=== PATIENT | female | born 1930 | race Caucasian/White ===

== ENCOUNTER 2017-05-19 13:38 | Emergency (ER) | payer MEDICARE, OTHER ==
[2017-05-19] MEDS ORDERED: BABY ASPIRIN 81 MG CHEW PO ONE (13:51)
[2017-05-19] MEDS ORDERED: Nitrostat 0.4 MG (ED) SL ONE (13:51)
[2017-05-19] MEDS ORDERED: Inapsine 5 MG/2 ML IV ONE (13:51)
[2017-05-19] MEDS ORDERED: NITRO-BID 2% UD PACKETS TOP ONE (13:57)
[2017-05-19] MEDS ORDERED: SUBLIMAZE 100 MCG/2 ML IV ONE (13:57)
[2017-05-19] MEDS ORDERED: NITRO-BID 2% UD PACKETS ONE (14:00)
[2017-05-19] MEDS ORDERED: Sodium Chloride 0.9% 1000 ML 1,000 ML IV SCH (14:00)
[2017-05-19] MEDS ORDERED: BABY ASPIRIN 81 MG CHEW ONE (14:00)
[2017-05-19] MEDS ORDERED: Sodium Chloride 0.9% 1000 ML 1,000 ML ONE (14:00)
[2017-05-19] MEDS ORDERED: SUBLIMAZE 100 MCG/2 ML ONE (14:00)
[2017-05-19 14:25] LABS: BASOPHIL % 0.4 % (0.0-0.4); Eosinophil % 2.9 % (0.00-5.0); Granulocytes % 59.4 % (36.0-66.0); Lymphocytes % 29.2 % (24.0-44.0); Mean Cell Volume 92.8 fl (78-100); Mean Corpuscular Hemoglobin 29.7 pg (26-32); Mean Platelet Volume 9.4 fl (6-9.5); Monocytes % 8.1 % (0.0-12.0); Platelet Count 333 K/mm3 (150-450); Red Blood Count 3.77 M/mm3 (4.1-5.4); Red Cell Distribution Width 13.5 % (11.5-14.0); White Blood Count 5.5 K/mm3 (4.0-10.5)
--- NOTE | 2017-05-19 14:31 | ERPHSYRPT ---
- History of Present Illness Time Seen by Provider: 05/19/17 13:45 Historian: patient Exam Limitations: clinical condition Patient Subjective Stated Complaint: pt c/o burning in the chest, havent felt well all week with dizziness. Triage Nursing Assessment: pt walked into the ER with help of daughter and staff. Pt is pale, warm and dry. respirations even and unlabored. Physician History: PATIENT WITH HISTORY OF CORONARY ARTERY DISEASE, MYOCARDIAL INFARCTION X 3, STENTS X 4 COMPLAINS OF ACUTE ONSET OF BURNING CHEST PAIN DISCOMFORT AT 11 AM TODAY, PAIN SCALE 10/10, HAD RELIEF AFTER NITROGLYCERIN X 3 PAIN SCALE IMPROVED TO 2/10. DENIES ASSOCIATED DYSPNEA, DIAPHORESIS OR PALPITATIONS. Timing/Duration: today Activities at Onset: none Quality: burning Location: substernal Chest Pain Radiation: no radiation Severity of Pain-Max: severe Severity of Pain-Current: mild Modifying Factors: Improves With: nitroglycerin Associated Symptoms: denies symptoms Prior Chest Pain/Cardiac Workup: cardiac cath, heart attack Nitro Today/Relief: 0.4 mg x 4, provided at home Aspirin Treatment Today: 81 mg x 4, provided at home Allergies/Adverse Reactions: iodine [Iodine] Allergy (Severe, Verified 10/30/16 13:46) Shellfish *RETIRED-03/14/13 [Shellfish] Allergy (Verified 10/30/16 13:46) Home Medications: Aspirin EC 81 mg [Ecotrin 81 mg] 81 mg PO DAILY 04/30/13 [History] Carvedilol 3.125 mg [Coreg 3.125 MG] 3.125 mg PO BID 04/30/13 [History] Clonazepam [Klonopin] 1 mg PO BID PRN 04/30/13 [History] Metformin HCl 500 mg [Glucophage 500 MG] 500 mg PO BID 04/30/13 [History] Nitroglycerin 0.4 mg Tablet [Nitrostat 0.4 MG Tablet] 0.4 mg SL Q5MIN PRN MR X 3 PRN 04/30/13 [History] Famotidine 40 mg PO HS 05/19/17 [History] Fexofenadine HCl 60 mg PO DAILY 05/19/17 [History] Mometasone/Formoterol [Dulera 200 Mcg/5 Mcg Inhaler] 8.8 gm IH BID 05/19/17 [ History] Montelukast Sodium 10 mg PO DAILY 05/19/17 [History] PANTOPRAZOLE 40 mg Tablet [Protonix 40MG Tablet] 40 mg PO DAILY 05/19/17 [ History] Ticagrelor [Brilinta] 90 mg PO BID 05/19/17 [History] Valsartan 80 mg PO DAILY 05/19/17 [History] Hx Tetanus, Diphtheria Vaccination/Date Given: No Hx Influenza Vaccination/Date Given: Yes Hx Pneumococcal Vaccination/Date Given: Yes Immunizations Up to Date: Yes - Review of Systems Constitutional: No Fever, No Chills Eyes: No Symptoms Ears, Nose, & Throat: No Symptoms Respiratory: No Cough, No Dyspnea Cardiac: No Chest Pain, No Edema, No Syncope Abdominal/Gastrointestinal: No Symptoms, No Abdominal Pain, No Nausea, No Vomiting, No Diarrhea Genitourinary Symptoms: No Symptoms, No Dysuria Musculoskeletal: No Symptoms, No Back Pain, No Neck Pain Skin: No Symptoms, No Rash Neurological: No Dizziness, No Focal Weakness, No Sensory Changes Psychological: No Symptoms Endocrine: No Symptoms All Other Systems: Reviewed and Negative - Past Medical History Pertinent Past Medical History: Yes Neurological History: TIA ENT History: Cataracts Cardiac History: Angina, Coronary Artery Disease, Myocardial Infarction ([place]), High Cholesterol, Hypertension Respiratory History: Bronchitis Endocrine Medical History: Diabetes Type II Musculoskeletal History: Arthritis GI Medical History: Diverticulitis, Polyps, Irritable Bowel, GERD History: No Pertinent History Psycho-Social History: Anxiety Female Reproductive Disorders: No Pertinent History - Past Surgical History Past Surgical History: Yes Neuro Surgical History: No Pertinent History Cardiac: Angioplasty, Cardiac Stent, Cardiac Catheterization Respiratory: No Pertinent History Gastrointestinal: Hemorrhoidectomy Genitourinary: No Pertinent History Musculoskeletal: No Pertinent History Female Surgical History: No Pertinent History Other Surgical History: OVARIAN CYST REMOVED. - Social History Smoking Status: Never smoker Exposure to second hand smoke: Yes Drug Use: none Patient Lives Alone: Yes - Female History Hx Now: No - Nursing Vital Signs Nursing Vital Signs: Initial Vital Signs Pulse Rate [] 71 Pulse Rate 70 Respiratory Rate 16 Blood Pressure [] 154/74 Pain Intensity 0 - Physical Exam General Appearance: no apparent distress, alert Eye Exam: PERRL/EOMI, eyes nml inspection Ears, Nose, Throat Exam: normal ENT inspection, moist mucous membranes Neck Exam: normal inspection, non-tender, supple, full range of motion Respiratory Exam: normal breath sounds, lungs clear, No respiratory distress Cardiovascular Exam: regular rate/rhythm, normal heart sounds Gastrointestinal/Abdomen Exam: soft, normal bowel sounds (NONTENDER), No tenderness, No mass Back Exam: normal inspection, No CVA tenderness, No vertebral tenderness Extremity Exam: normal inspection, normal range of motion Neurologic Exam: alert, oriented x 3, cooperative, normal mood/affect, sensation nml, No motor deficits Skin Exam: normal color, warm, dry SpO2 Interpretation: normal SpO2: 100 Oxygen Delivery: Nasal Cannula - Course EKG Interpreted by Me: RATE, Sinus Rhythm (SINUS ARRHYTHMIA RATE 66,) - Radiology Exams Chest X-ray Interpretation: Discussed w/ radiologist (ELEVATION LEFT HEMIDIAPHRAM, NO EVIDENCE OF INFILTRATES) Ordered Tests: Active Orders 24 hr Category Date Time Status Director Business Intelligence STAT Care 05/19/17 13:51 Active EKG-ER Only STAT Care 05/19/17 13:51 Active IV Insertion STAT Care 05/19/17 13:51 Active Oxygen-ED Only NASAL CANNULA 2 lpm Care 05/19/17 13:51 Active CHEST 1 VIEW (PORTABLE) Stat Exams 05/19/17 13:52 Completed CBC W DIFF Stat Lab 05/19/17 14:21 Completed CMP Stat Lab 05/19/17 14:21 Completed NT PRO BNP Stat Lab 05/19/17 14:21 Completed PROTIME WITH INR Stat Lab 05/19/17 14:21 Completed TROPONIN Q3H Lab 05/19/17 14:21 Completed Medication Summary Discontinued Medications Generic Name Dose Route Start Last Admin Trade Name Namrata PRN Reason Stop Dose Admin Aspirin 324 mg 05/19/17 13:51 05/19/17 14:13 Baby Aspirin 81 Mg Chew PO 05/19/17 13:52 324 mg STAT ONE Administration Aspirin Confirm 05/19/17 14:00 Baby Aspirin 81 Mg Chew Administered 05/19/17 14:01 Dose 81 mg .ROUTE .STK-MED ONE Droperidol 1.25 mg 05/19/17 13:51 05/19/17 14:24 Inapsine 5 Mg/2 Ml IV 05/19/17 13:52 Not Given STAT ONE Fentanyl Citrate 50 mcg 05/19/17 13:57 05/19/17 14:05 Sublimaze 100 Mcg/2 Ml IV 05/19/17 13:58 50 mcg STAT ONE Administration Fentanyl Citrate Confirm 05/19/17 14:00 Sublimaze 100 Mcg/2 Ml Administered 05/19/17 14:01 Dose 100 mcg .ROUTE .STK-MED ONE Sodium Chloride 1,000 mls @ 50 mls/hr 05/19/17 14:00 05/19/17 14:04 Sodium Chloride 0.9% 1000 Ml IV 06/18/17 13:59 50 mls/hr .Q20H FRIEDA Administration Sodium Chloride Confirm 05/19/17 14:00 Sodium Chloride 0.9% 1000 Ml Administered 05/19/17 14:01 Dose 1,000 mls @ ud .ROUTE .STK-MED ONE Nitroglycerin 0.4 mg 05/19/17 13:51 05/19/17 14:24 Nitrostat 0.4 Mg (Ed) SL 05/19/17 13:52 Not Given STAT ONE Nitroglycerin 1 gm 05/19/17 13:57 05/19/17 14:04 Nitro-Bid 2% Ud Packets TOP 05/19/17 13:58 1 gm STAT ONE Administration Nitroglycerin Confirm 05/19/17 14:00 Nitro-Bid 2% Ud Packets Administered 05/19/17 14:01 Dose 1 gm .ROUTE .STK-MED ONE Lab/Rad Data: Laboratory Result Diagrams 05/19/17 14:21 05/19/17 14:21 Laboratory Results 05/19/17 05/19/17 05/19/17 Range/Units 14:21 14:21 14:21 WBC (4.0-10.5) K/mm3 RBC (4.1-5.4) M/mm3 Hgb (12.0-16.0) gm/dl Hct (35-47) % MCV (78-100) fl MCH (26-32) pg MCHC (32-36) g/dl RDW (11.5-14.0) % Plt Count (150-450) K/mm3 MPV (6-9.5) fl Gran % (36.0-66.0) % Lymphocytes % (24.0-44.0) % Monocytes % (0.0-12.0) % Eosinophils % (0.00-5.0) % Basophils % (0.0-0.4) % Basophils # (0-0.4) INR 1.01 (0.8-3.0) Sodium 143 (136-145) mEq/L Potassium 4.6 (3.5-5.1) mEq/L Chloride 106 (98-107) mEq/L Carbon Dioxide 27.6 (21-32) mEq/L Anion Gap 14.1 (5-15) MEQ/L BUN 19 (9-20) mg/dL Creatinine 1.29 (0.55-1.30) mg/dl Estimated GFR 42 ML/MIN Glucose 93 (70-110) MG/DL Calcium 9.5 (8.5-10.1) mg/dL Total Bilirubin 0.30 (0.2-1.0) mg/dL AST 19 (15-37) U/L ALT 15 (12-78) U/L Alkaline Phosphatase 68 (46-116) U/L Troponin I < 0.017 (0.000-0.056) ng/ml NT-Pro-B Natriuret Pep 416 (0-450) pg/ml Serum Total Protein 6.7 (6.4-8.2) gm/dL Albumin 3.5 (3.4-5.0) g/dL 05/19/17 Range/Units 14:21 WBC 5.5 (4.0-10.5) K/mm3 RBC 3.77 L (4.1-5.4) M/mm3 Hgb 11.2 L (12.0-16.0) gm/dl Hct 35.0 (35-47) % MCV 92.8 (78-100) fl MCH 29.7 (26-32) pg MCHC 32.0 (32-36) g/dl RDW 13.5 (11.5-14.0) % Plt Count 333 (150-450) K/mm3 MPV 9.4 (6-9.5) fl Gran % 59.4 (36.0-66.0) % Lymphocytes % 29.2 (24.0-44.0) % Monocytes % 8.1 (0.0-12.0) % Eosinophils % 2.9 (0.00-5.0) % Basophils % 0.4 (0.0-0.4) % Basophils # 0.02 (0-0.4) INR (0.8-3.0) Sodium (136-145) mEq/L Potassium (3.5-5.1) mEq/L Chloride (98-107) mEq/L Carbon Dioxide (21-32) mEq/L Anion Gap (5-15) MEQ/L BUN (9-20) mg/dL Creatinine (0.55-1.30) mg/dl Estimated GFR ML/MIN Glucose (70-110) MG/DL Calcium (8.5-10.1) mg/dL Total Bilirubin (0.2-1.0) mg/dL AST (15-37) U/L ALT (12-78) U/L Alkaline Phosphatase (46-116) U/L Troponin I (0.000-0.056) ng/ml NT-Pro-B Natriuret Pep (0-450) pg/ml Serum Total Protein (6.4-8.2) gm/dL Albumin (3.4-5.0) g/dL - Progress Progress: improved Progress Note: 05/19/17 14:30 PATIENT GIVEN IV NORMAL SALINE 50ML/HR, ZOFRAN 4MG, FENTANYL 50MCG, AND NITROPASTE 1" ANTERIOR CHEST WALL, CHEST PAIN RESOLVED Discussed with : Other (DISCUSSED WITH DR TORO AT 1550 ACCEPTS TRANSFER TO [facility]IA [facility]) - Departure Time of Disposition: 17:30 Departure Disposition: Transfer Clinical Impression: ACUTE CHEST PAIN Condition: Stable Critical Care Time: No Referrals: MARNIE AN [Primary Care Provider] -
--- NOTE | 2017-05-19 14:36 | XRAY ---
Indication: Chest pain. Comparison: October 30, 2016. Portable chest again demonstrates normal heart and lungs with incidental calcified granulomas. Bony thorax intact.
[2017-05-19 14:44] LABS: INR 1.01 (0.8-3.0); PROTIME 11.4 SECONDS (9.95-12.35)
[2017-05-19 14:51] LABS: ALBUMIN 3.5 g/dL (3.4-5.0); ANION GAP 14.1 MEQ/L (5-15); BILIRUBIN,TOTAL 0.3 mg/dL (0.2-1.0); Carbon Dioxide 27.6 mEq/L (21-32); Potassium 4.6 mEq/L (3.5-5.1); Total Protein 6.7 gm/dL (6.4-8.2)
[2017-05-19 15:59] VITALS: O2SAT 100
[2017-05-19 16:22] VITALS: BP 154/74; PULSE 70
== END 2017-05-19 16:50 | disposition short-term general hospital (02) ==
LOC: ED 13:38
DX: R07.89 Other chest pain (principal); R42 Dizziness and giddiness; I25.2 Old myocardial infarction; I25.10 Atherosclerotic heart disease of native coronary artery without angina pectoris; E78.00 Pure hypercholesterolemia, unspecified; I10 Essential (primary) hypertension; E11.9 Type 2 diabetes mellitus without complications
CPT/HCPCS: 36000; 36415; 71010; 80053; 83880; 84484; 85025; 85610; 93005; 93041; 96360; 96361; 96374; 99285; J3010; A9270-GY

== ENCOUNTER 2018-02-16 14:12 | Emergency (ER) | payer MEDICARE, OTHER ==
--- NOTE | 2018-02-16 14:53 | ERPHSYRPT ---
- History of Present Illness Time Seen by Provider: 02/16/18 14:35 Historian: patient Exam Limitations: no limitations Patient Subjective Stated Complaint: pt has chest pain off and on since this morning, she states nitro helped her pain , describes as aching, had 2 weeks ago had a heart cath, Triage Nursing Assessment: pt alert, resp easy, skin w/d/p, no edema ,chest clear Physician History: The patient is an 87-year-old female with her daughter status post cardiac stent placement 2 weeks ago complains of intermittent chest pain ever since the cardiac stent placement. Today the chest pain lasted longer than usual. The chest pain had been lasting only about 1 minute a few times a day. Today the chest pain began and did not let up. It was a 3 out of 10 achy pain left side. She denies shortness of breath, sweating, or nausea. Her daughter had her take a nitroglycerin tablet which was the first one she has taken since the stent placement. She became lightheaded after taking the nitroglycerin. The chest pain resolved. The chest pain is now slowly coming back. Her migratory game bird biologist was contacted by the daughter and the patient was told to come to the ER for evaluation. The patient has had previous cardiac stents placed prior to this most recent stent placement. Her past medical history is significant for coronary artery disease, cardiac stent placement, hypertension, GERD, and anxiety. Timing/Duration: week(s) (2), intermittent Activities at Onset: none Quality: aching Location: substernal Chest Pain Radiation: no radiation Severity of Pain-Max: mild Severity of Pain-Current: mild Modifying Factors: Improves With: nitroglycerin Associated Symptoms: denies symptoms, No nausea, No vomiting, No palpitations, No heartburn, No hurts to breathe Prior Chest Pain/Cardiac Workup: cardiac cath, recent hospitalization Nitro Today/Relief: 0.4 mg x 1, provided at home, complete relief Aspirin Treatment Today: no aspirin today Allergies/Adverse Reactions: iodine [Iodine] Allergy (Severe, Verified 10/30/16 13:46) Shellfish *RETIRED-03/14/13 [Shellfish] Allergy (Verified 10/30/16 13:46) shrimp Allergy (Verified 02/16/18 14:29) Home Medications: Aspirin EC 81 mg [Ecotrin 81 mg] 81 mg PO DAILY 04/30/13 [History] Clonazepam [Klonopin] 1 mg PO BID PRN 04/30/13 [History] Nitroglycerin 0.4 mg Tablet [Nitrostat 0.4 MG Tablet] 0.4 mg SL Q5MIN PRN MR X 3 PRN 04/30/13 [History] Fexofenadine HCl 60 mg PO DAILY 05/19/17 [History] Mometasone/Formoterol [Dulera 200 Mcg/5 Mcg Inhaler] 8.8 gm IH BID 05/19/17 [ History] Montelukast Sodium 10 mg PO DAILY 05/19/17 [History] PANTOPRAZOLE 40 mg Tablet [Protonix 40MG Tablet] 40 mg PO DAILY 05/19/17 [ History] Valsartan 80 mg PO DAILY 05/19/17 [History] Carvedilol 3.125 mg [Coreg 3.125 MG] 3.125 mg BID 02/16/18 [History] Diphenhydramine HCl [Banophen] 25 mg DAILY 02/16/18 [History] Hx Tetanus, Diphtheria Vaccination/Date Given: No Hx Influenza Vaccination/Date Given: Yes Hx Pneumococcal Vaccination/Date Given: No Immunizations Up to Date: Yes - Review of Systems Constitutional: No Fever, No Chills Eyes: No Symptoms Ears, Nose, & Throat: No Symptoms Respiratory: No Cough, No Dyspnea Cardiac: Chest Pain, No Edema, No Syncope Abdominal/Gastrointestinal: No Abdominal Pain, No Nausea, No Vomiting, No Diarrhea Genitourinary Symptoms: No Dysuria Musculoskeletal: No Back Pain, No Neck Pain Skin: No Rash Neurological: No Dizziness, No Focal Weakness, No Sensory Changes Psychological: No Symptoms Endocrine: No Symptoms Hematologic/Lymphatic: No Symptoms Immunological/Allergic: No Symptoms All Other Systems: Reviewed and Negative - Past Medical History Pertinent Past Medical History: Yes Neurological History: TIA ENT History: Cataracts Cardiac History: Angina, Coronary Artery Disease, Myocardial Infarction ([place]), High Cholesterol, Hypertension Respiratory History: Bronchitis Endocrine Medical History: Diabetes Type II Musculoskeletal History: Arthritis GI Medical History: Diverticulitis, Polyps, Irritable Bowel, GERD History: No Pertinent History Psycho-Social History: Anxiety Female Reproductive Disorders: No Pertinent History - Past Surgical History Past Surgical History: Yes Neuro Surgical History: No Pertinent History Cardiac: Angioplasty, Cardiac Stent, Cardiac Catheterization Respiratory: No Pertinent History Gastrointestinal: Hemorrhoidectomy Genitourinary: No Pertinent History Musculoskeletal: No Pertinent History Female Surgical History: No Pertinent History Other Surgical History: OVARIAN CYST REMOVED. - Social History Smoking Status: Never smoker Exposure to second hand smoke: No Drug Use: none Patient Lives Alone: No - Female History Hx Last Menstrual Period: post Hx Now: No - Nursing Vital Signs Nursing Vital Signs: Initial Vital Signs Temperature 97.0 F 02/16/18 14:23 Pulse Rate 65 02/16/18 14:23 Respiratory Rate 20 02/16/18 14:23 Blood Pressure 171/78 02/16/18 14:23 O2 Sat by Pulse Oximetry 100 02/16/18 14:23 Pain Scale Pain Intensity 1 - Physical Exam General Appearance: no apparent distress, alert Eye Exam: PERRL/EOMI, eyes nml inspection Ears, Nose, Throat Exam: normal ENT inspection, moist mucous membranes Neck Exam: normal inspection, non-tender, supple, full range of motion Respiratory Exam: normal breath sounds, lungs clear, No respiratory distress Cardiovascular Exam: regular rate/rhythm, normal heart sounds Gastrointestinal/Abdomen Exam: soft, No tenderness, No mass Pelvic Exam: not done Rectal Exam: not done Back Exam: normal inspection, No CVA tenderness, No vertebral tenderness Extremity Exam: normal inspection, normal range of motion Neurologic Exam: alert, oriented x 3, cooperative, normal mood/affect, sensation nml, No motor deficits Skin Exam: normal color, warm, dry Lymphatic Exam: adenopathy SpO2 Interpretation: normal SpO2: 100 Oxygen Delivery: Room Air - Course EKG Interpreted by Me: RATE, Sinus Rhythm, NORMAL AXIS, NORMAL INTERVALS, NORMAL QRS, NORMAL ST-T, Other (no change compared to EKG on 05/19/17) - Radiology Exams Chest X-ray Interpretation: Reviewed by me, Teleradiologist Report, Negative (per Dr Gayle.) Ordered Tests: Active Orders 24 hr Category Date Time Status Telecommunications Network Engineer STAT Care 02/16/18 15:06 Active EKG-ER Only STAT Care 02/16/18 15:04 Active IV Insertion STAT Care 02/16/18 15:04 Active Oxygen-ED Only NASAL CANNULA 2 lpm Care 02/16/18 15:04 Active Pulse Oximetry (ED) STAT Care 02/16/18 15:04 Active CHEST 2 VIEWS (PA AND LAT) Stat Exams 02/16/18 15:05 Completed CBC W DIFF Stat Lab 02/16/18 15:00 Completed CMP Stat Lab 02/16/18 15:00 Completed PROTIME WITH INR Stat Lab 02/16/18 15:00 Completed PTT Stat Lab 02/16/18 15:00 Completed TROPONIN Q3H Lab 02/16/18 15:15 Completed TROPONIN Q3H Lab 02/16/18 18:15 Ordered TROPONIN Q3H Lab 02/16/18 21:15 Ordered TROPONIN Q3H Lab 02/17/18 00:15 Ordered TROPONIN Q3H Lab 02/17/18 03:15 Ordered Medication Summary Discontinued Medications Generic Name Dose Route Start Last Admin Trade Name Freq PRN Reason Stop Dose Admin Aspirin 324 mg 02/16/18 15:04 02/16/18 15:23 Baby Aspirin 81 Mg Chew PO 02/16/18 15:05 324 mg STAT ONE Administration Aspirin Confirm 02/16/18 15:26 Baby Aspirin 81 Mg Chew Administered 02/16/18 15:27 Dose 324 mg .ROUTE .STK-MED ONE Lab/Rad Data: Laboratory Result Diagrams 02/16/18 15:00 02/16/18 15:00 Laboratory Results 02/16/18 02/16/18 02/16/18 Range/Units 15:15 15:00 15:00 WBC (4.0-10.5) K/mm3 RBC (4.1-5.4) M/mm3 Hgb (12.0-16.0) gm/dl Hct (35-47) % MCV (78-100) fl MCH (26-32) pg MCHC (32-36) g/dl RDW (11.5-14.0) % Plt Count (150-450) K/mm3 MPV (6-9.5) fl Gran % (36.0-66.0) % Eos # (Auto) (0-0.5) Absolute Lymphs (auto) (1.0-4.6) Absolute Monos (auto) (0.0-1.3) Lymphocytes % (24.0-44.0) % Monocytes % (0.0-12.0) % Eosinophils % (0.00-5.0) % Basophils % (0.0-0.4) % Absolute Granulocytes (1.4-6.9) Basophils # (0-0.4) PT 11.2 (9.95-12.35) SECONDS INR 1.01 (0.8-3.0) APTT 30.3 (25.3-37.0) SECONDS Sodium 143 (137-145) mmol/L Potassium 4.7 (3.5-5.1) mmol/L Chloride 104 (98-107) mmol/L Carbon Dioxide 28 (22-30) mmol/L Anion Gap 15.3 H (5-15) MEQ/L BUN 21 H (7-17) mg/dL Creatinine 1.33 H (0.52-1.04) mg/dL Estimated GFR 40 ML/MIN Glucose 112 H (74-106) mg/dL Calcium 9.6 (8.4-10.2) mg/dL Total Bilirubin 0.40 (0.2-1.3) mg/dL AST 21 (14-36) U/L ALT 9 (0-35) U/L Alkaline Phosphatase 113 (38-126) U/L Troponin I < 0.012 (0.000-0.034) ng/mL Serum Total Protein 6.9 (6.3-8.2) g/dL Albumin 4.0 (3.5-5.0) g/dL 02/16/18 Range/Units 15:00 WBC 7.7 (4.0-10.5) K/mm3 RBC 3.83 L (4.1-5.4) M/mm3 Hgb 11.2 L (12.0-16.0) gm/dl Hct 35.1 (35-47) % MCV 91.6 (78-100) fl MCH 29.2 (26-32) pg MCHC 31.9 L (32-36) g/dl RDW 14.8 H (11.5-14.0) % Plt Count 314 (150-450) K/mm3 MPV 9.6 H (6-9.5) fl Gran % 67.0 H (36.0-66.0) % Eos # (Auto) 0.14 (0-0.5) Absolute Lymphs (auto) 1.80 (1.0-4.6) Absolute Monos (auto) 0.59 (0.0-1.3) Lymphocytes % 23.3 L (24.0-44.0) % Monocytes % 7.6 (0.0-12.0) % Eosinophils % 1.8 (0.00-5.0) % Basophils % 0.3 (0.0-0.4) % Absolute Granulocytes 5.19 (1.4-6.9) Basophils # 0.02 (0-0.4) PT (9.95-12.35) SECONDS INR (0.8-3.0) APTT (25.3-37.0) SECONDS Sodium (137-145) mmol/L Potassium (3.5-5.1) mmol/L Chloride (98-107) mmol/L Carbon Dioxide (22-30) mmol/L Anion Gap (5-15) MEQ/L BUN (7-17) mg/dL Creatinine (0.52-1.04) mg/dL Estimated GFR ML/MIN Glucose (74-106) mg/dL Calcium (8.4-10.2) mg/dL Total Bilirubin (0.2-1.3) mg/dL AST (14-36) U/L ALT (0-35) U/L Alkaline Phosphatase (38-126) U/L Troponin I (0.000-0.034) ng/mL Serum Total Protein (6.3-8.2) g/dL Albumin (3.5-5.0) g/dL - Progress Progress: unchanged Air Movement: good Progress Note: 02/16/18 16:16 I discussed pt with Dr Ramsey who accepts pt to [facility]. Blood Culture(s) Obtained: No Antibiotics given: No Counseled pt/family regarding: lab results, diagnosis, rad results - Departure Time of Disposition: 16:15 Departure Disposition: Transfer (Transfer to [facility] per Dr Ramsey) Clinical Impression: Chest pain Condition: Stable Critical Care Time: No Referrals: CHARLES BERNARD [Primary Care Provider] -
[2018-02-16] MEDS ORDERED: BABY ASPIRIN 81 MG CHEW PO ONE (15:04)
[2018-02-16 15:19] LABS: BASOPHIL % 0.3 % (0.0-0.4); Basophil (Absolute #) 0.02 (0-0.4); Eosinophil % 1.8 % (0.00-5.0); Eosinophil (Absolute #) 0.14 (0-0.5); Granulocyte Absolute (ANC) 5.19 (1.4-6.9); Hematocrit 35.1 % (35-47); Hemoglobin 11.2 gm/dl (12.0-16.0); Lymphocytes % 23.3 % (24.0-44.0); Mean Cell Volume 91.6 fl (78-100); Mean Corpuscular Hemoglobin 29.2 pg (26-32); Mean Corpuscular Hgb Concent. 31.9 g/dl (32-36); Mean Platelet Volume 9.6 fl (6-9.5); Monocyte (Absolute #) 0.59 (0.0-1.3); Monocytes % 7.6 % (0.0-12.0); Platelet Count 314 K/mm3 (150-450); Red Blood Count 3.83 M/mm3 (4.1-5.4); Red Cell Distribution Width 14.8 % (11.5-14.0); White Blood Count 7.7 K/mm3 (4.0-10.5)
[2018-02-16 15:25] LABS: ANION GAP 15.3 MEQ/L (5-15); BILIRUBIN,TOTAL 0.4 mg/dL (0.2-1.3); Calcium 9.6 mg/dL (8.4-10.2); Creatinine 1 1.33 mg/dL (0.52-1.04); Potassium 4.7 mmol/L (3.5-5.1); Total Protein 6.9 g/dL (6.3-8.2)
[2018-02-16 15:26] LABS: INR 1.01 (0.8-3.0)
[2018-02-16] MEDS ORDERED: BABY ASPIRIN 81 MG CHEW ONE (15:26)
--- NOTE | 2018-02-16 15:27 | XRAY ---
Indication: Chest pain and short of breath. Comparison: May 19, 2017. PA/lateral chest again demonstrates normal heart and lungs with a few incidental calcified granulomas. Bony thorax intact. No new/acute findings.
[2018-02-16 15:29] LABS: PTT 30.3 SECONDS (25.3-37.0)
[2018-02-16 17:27] VITALS: BP 137/72; PULSE 76; O2SAT 99
== END 2018-02-16 17:41 | disposition home or self-care (01) ==
LOC: ED 14:12
DX: R07.9 Chest pain, unspecified (principal); Z98.61 Coronary angioplasty status; I25.10 Atherosclerotic heart disease of native coronary artery without angina pectoris; I10 Essential (primary) hypertension; K21.9 Gastro-esophageal reflux disease without esophagitis; F41.9 Anxiety disorder, unspecified; Z79.899 Other long term (current) drug therapy
CPT/HCPCS: 36000; 36415; 71046; 80053; 84484; 85025; 85610; 85730; 93005; 93041; 99284; A9270-GY

== ENCOUNTER 2018-05-10 14:16 | Emergency (ER) | payer MEDICARE, OTHER ==
[2018-05-10 14:23] VITALS: O2SAT 98
--- NOTE | 2018-05-10 14:33 | ERPHSYRPT ---
- History of Present Illness Time Seen by Provider: 05/10/18 14:27 Source: patient Exam Limitations: no limitations Patient Subjective Stated Complaint: Fall, Right Wrist Pain, Chin Laceration Triage Nursing Assessment: Pt presents to the ED with complaints of fall at [facility] [place] a [place]. Pt has laceration to chin, bleeding controlled on arrival. Pt also has mild right wrist swelling and abrasion noted to wrist with no active bleeding. No distress noted, skin PWD. Physician History: patient actually tripped walking up a ramp, resulting in falling face first onto concrete. Incident occurred about an hour prior to arrival to ED. Patient did not have any loss of consciousness. Patient was alert and appropriate throughout. Patient did suffer a 1 cm chin laceration and a small skin tear to her right wrists area. Patient denies any headaches, dizziness, nausea, vomiting, chest/abdominal/pelvis/extremity pain or injuries. Occurred: just prior to arrival Reason for Fall: lost balance Injuries/Pain Location: face (Chin laceration approximately 1 cm), upper extremity (skin tear to right wrist) Loss of Consciousness: no loss of consciousness Quality: burning Severity of Pain-Max: mild Severity of Pain-Current: none Modifying Factors: Improves With: movement (worsens) Associated Symptoms (Fall): extremity injury, No back pain, No chest pain, No dizziness, No headache, No lightheadedness, No trouble walking, No vomiting, No vision changes Allergies/Adverse Reactions: iodine [Iodine] Allergy (Severe, Verified 10/30/16 13:46) Shellfish *RETIRED-03/14/13 [Shellfish] Allergy (Verified 10/30/16 13:46) shrimp Allergy (Verified 02/16/18 14:29) Home Medications: Aspirin EC 81 mg [Ecotrin 81 mg] 81 mg PO DAILY 04/30/13 [History] Clonazepam [Klonopin] 1 mg PO BID PRN 04/30/13 [History] Nitroglycerin 0.4 mg Tablet [Nitrostat 0.4 MG Tablet] 0.4 mg SL Q5MIN PRN MR X 3 PRN 04/30/13 [History] Fexofenadine HCl 60 mg PO DAILY 05/19/17 [History] Mometasone/Formoterol [Dulera 200 Mcg/5 Mcg Inhaler] 8.8 gm IH BID 05/19/17 [ History] Montelukast Sodium 10 mg PO DAILY 05/19/17 [History] PANTOPRAZOLE 40 mg Tablet [Protonix 40MG Tablet] 40 mg PO DAILY 05/19/17 [ History] Valsartan 80 mg PO DAILY 05/19/17 [History] Carvedilol 3.125 mg [Coreg 3.125 MG] 3.125 mg BID 02/16/18 [History] Diphenhydramine HCl [Banophen] 25 mg DAILY 02/16/18 [History] Hx Tetanus, Diphtheria Vaccination/Date Given: No Hx Influenza Vaccination/Date Given: Yes Hx Pneumococcal Vaccination/Date Given: Yes Immunizations Up to Date: No - Review of Systems Constitutional: No Fever, No Chills Eyes: No Symptoms Ears, Nose, & Throat: No Symptoms Respiratory: No Symptoms, No Cough, No Dyspnea Cardiac: No Symptoms, No Chest Pain, No Edema, No Syncope Abdominal/Gastrointestinal: No Symptoms, No Abdominal Pain, No Nausea, No Vomiting, No Diarrhea Genitourinary Symptoms: No Symptoms, No Dysuria Musculoskeletal: No Back Pain, No Neck Pain Skin: Other (R wrist skin tear/chin lac), No Rash Neurological: No Dizziness, No Focal Weakness, No Sensory Changes Psychological: No Symptoms Endocrine: No Symptoms Hematologic/Lymphatic: No Symptoms Immunological/Allergic: No Symptoms All Other Systems: Reviewed and Negative - Past Medical History Pertinent Past Medical History: Yes Neurological History: TIA ENT History: Cataracts Cardiac History: Angina, Coronary Artery Disease, Myocardial Infarction (SD), High Cholesterol, Hypertension Respiratory History: Bronchitis Endocrine Medical History: Diabetes Type II Musculoskeletal History: Arthritis GI Medical History: Diverticulitis, Polyps, Irritable Bowel, GERD History: No Pertinent History Psycho-Social History: Anxiety Female Reproductive Disorders: No Pertinent History - Past Surgical History Past Surgical History: Yes Neuro Surgical History: No Pertinent History Cardiac: Angioplasty, Cardiac Stent, Cardiac Catheterization Respiratory: No Pertinent History Gastrointestinal: Hemorrhoidectomy Genitourinary: No Pertinent History Musculoskeletal: No Pertinent History Female Surgical History: No Pertinent History Other Surgical History: OVARIAN CYST REMOVED. - Social History Smoking Status: Never smoker Exposure to second hand smoke: No Drug Use: none Patient Lives Alone: Yes - Female History Hx Now: No - Nursing Vital Signs Nursing Vital Signs: Initial Vital Signs Temperature 98.8 F 05/10/18 14:20 Pulse Rate 72 05/10/18 14:20 Respiratory Rate 18 05/10/18 14:20 Blood Pressure 156/77 05/10/18 14:20 O2 Sat by Pulse Oximetry 98 05/10/18 14:20 Pain Scale Pain Intensity 2 - Gray Coma Score Best Eye Response (Gray): (4) open spontaneously Best Verbal Response (Mica): (5) oriented Best Motor Response (Gray): (6) obeys commands Mica Total: 15 - Physical Exam General Appearance: no apparent distress, alert Head Injury: no evidence of injury Eye Exam: PERRL/EOMI ENT Exam: airway nml, No dental injury, No hemotympanum Neck Exam: supple, trachea midline, full range of motion, normal inspection, other (there is a 1 cm laceration to the lower chin area. This appears to be superficial), No tenderness Respiratory/Chest Exam: normal breath sounds, No chest tenderness, No respiratory distress Cardiovascular Exam: normal heart sounds, regular rate/rhythm Gastrointestinal Exam: soft, No tenderness, No distention, No guarding, No ecchymosis Back Exam: normal inspection, No vertebral tenderness Extremity Exam: normal inspection, normal range of motion, pelvis stable, contusions (right wrist), other (small skin tear right wrist), No deformities, No joint swelling, No evidence of injury, No hip tenderness, No motor deficit, No pain with movement Peripheral Pulses: dorsalis-pedis (R): 2+, dorsalis-pedis (L): 2+ Neurologic Exam: alert, oriented x 3, cooperative, sensation nml, No motor deficits Skin Exam: normal color, warm, dry SpO2 Interpretation: normal SpO2: 98 Oxygen Delivery: Room Air Procedures - Laceration/Wound Repair Face Wound Location: head (Chin) Wound Length (cm): 1 Wound's Depth, Shape: superficial Wound Explored: clean Irrigated: Yes Hibiclens Prep: Yes Anesthesia: 1% Lidocaine Volume Anesthetic (ccs): 3 Wound Debrided: minimal Wound Repaired With: sutures Suture Size/Type: 5-0 Number of Sutures: 4 Layer Closure?: No Sterile Dressing Applied?: Yes Splint Applied?: No Sling Applied?: No - Course Nursing assessment & vital signs reviewed: Yes - Progress Progress: improved Progress Note: 05/10/18 15:03 dressings were placed on skin tear and chin laceration. Tetanus was updated Counseled pt/family regarding: diagnosis - Departure Time of Disposition: 15:04 Departure Disposition: Home Clinical Impression: Chin laceration, Skin tear Condition: Stable Critical Care Time: No Referrals: CHARLES BERNARD [Primary Care Provider] - Instructions: Contusion (DC), Wound Care (DC) Additional Instructions: Sutures may be remove in 5-7 days. May take Motrin/Tylenol for pain and swelling, along with ice to any sore areas. Return for worse swelling, redness, pus from wound, fever or any problems
[2018-05-10] MEDS ORDERED: Adacel Vial IM ONE ×2 (15:02→15:05)
[2018-05-10] MEDS ORDERED: XYLOCAINE 1% HCL 20 ML MDV IJ ONE (15:10)
[2018-05-10 15:38] VITALS: BP 183/86; PULSE 80
== END 2018-05-10 15:38 | disposition home or self-care (01) ==
LOC: ED 14:16
DX: S01.81XA Laceration without foreign body of other part of head, initial encounter (principal); S61.511A Laceration without foreign body of right wrist, initial encounter; W10.2XXA Fall (on)(from) incline, initial encounter; Z79.82 Long term (current) use of aspirin; Z79.899 Other long term (current) drug therapy
CPT/HCPCS: 12011; 90471; 90715; 96372; 99284

== ENCOUNTER 2018-10-22 18:58 | Emergency (ER) | payer MEDICARE, OTHER ==
[2018-10-22] MEDS ORDERED: BABY ASPIRIN 81 MG CHEW PO ONE (19:19)
--- NOTE | 2018-10-22 19:24 | ERPHSYRPT ---
- History of Present Illness Time Seen by Provider: 10/22/18 19:21 Historian: patient Exam Limitations: no limitations Patient Subjective Stated Complaint: pt reports waking from sleep this morning with chest pain. denies any shortness of breath. pt reports taking 3 nitro without relief. pt has strong cardiac history. pt states "my pain is almost gone " Triage Nursing Assessment: pt is aox3, pupils perrl, afebrile, resps easy and non labored, radial pulses are strong and equal, heart sounds are strong and regular, cap refill < 3 seconds, no edema appreciated. skin is pale warm dry. pain localized to the center of the chest that radiates to the back. pain is intermittent in nature. Physician History: 88 year old white female with history of ASCAD, diabetes II, arrives with complaint of aching pain in anterior chest sometimes sharp since 8:00 tghis am began at rest Timing/Duration: today (8:00) Quality: aching, sharpness Location: substernal Chest Pain Radiation: no radiation Severity of Pain-Max: moderate Severity of Pain-Current: none Modifying Factors: Improves With: nothing Associated Symptoms: No nausea, No vomiting, No palpitations, No heartburn, No abdominal pain, No shortness of breath, No cough, No hurts to breathe, No diaphoresis, No chills, No fever, No weakness, No swelling/lump in chest, No syncope, No rash, No headache, No dizziness, No edema, No back pain Prior Chest Pain/Cardiac Workup: heart attack Nitro Today/Relief: no nitro taken today Aspirin Treatment Today: 81 mg x 4, provided by ED Allergies/Adverse Reactions: iodine [Iodine] Allergy (Severe, Verified 10/22/18 19:20) Shellfish *RETIRED-03/14/13 [Shellfish] Allergy (Verified 10/22/18 19:20) shrimp Allergy (Verified 10/22/18 19:20) Home Medications: Aspirin EC 81 mg [Ecotrin 81 mg] 81 mg PO DAILY 04/30/13 [History] Clonazepam [Klonopin] 1 mg PO BID PRN 04/30/13 [History] Nitroglycerin 0.4 mg Tablet [Nitrostat 0.4 MG Tablet] 0.4 mg SL Q5MIN PRN MR X 3 PRN 04/30/13 [History] Mometasone/Formoterol [Dulera 200 Mcg/5 Mcg Inhaler] 8.8 gm IH BID 05/19/17 [ History] Montelukast Sodium 10 mg PO DAILY 05/19/17 [History] PANTOPRAZOLE 40 mg Tablet [Protonix 40MG Tablet] 40 mg PO DAILY 05/19/17 [ History] Carvedilol 3.125 mg [Coreg 3.125 MG] 3.125 mg BID 02/16/18 [History] Albuterol Sulfate Mdi [Proair Hfa MDI] 8.5 gm IH Q6HPRN PRN 10/22/18 [ History] Isosorbide Mononitrate 30 mg [Imdur 30 MG] 30 mg PO DAILY 10/22/18 [History ] Polyethylene Glycol 3350 [Clearlax] 17 gm PO UD 10/22/18 [History] Hx Tetanus, Diphtheria Vaccination/Date Given: Yes Hx Influenza Vaccination/Date Given: Yes Hx Pneumococcal Vaccination/Date Given: Yes Immunizations Up to Date: Yes - Review of Systems Constitutional: No Fever, No Chills Eyes: No Symptoms Ears, Nose, & Throat: No Symptoms Respiratory: No Cough, No Dyspnea Cardiac: Chest Pain, No Edema, No Syncope Abdominal/Gastrointestinal: No Abdominal Pain, No Nausea, No Vomiting, No Diarrhea Genitourinary Symptoms: No Dysuria Musculoskeletal: No Back Pain, No Neck Pain Skin: No Rash Neurological: No Dizziness, No Focal Weakness, No Sensory Changes Psychological: No Symptoms Endocrine: No Symptoms All Other Systems: Reviewed and Negative - Past Medical History Pertinent Past Medical History: Yes Neurological History: TIA ENT History: Cataracts Cardiac History: Angina, Coronary Artery Disease, Myocardial Infarction (HI), High Cholesterol, Hypertension Respiratory History: Bronchitis Endocrine Medical History: Diabetes Type II Musculoskeletal History: Arthritis GI Medical History: Diverticulitis, Polyps, Irritable Bowel, GERD History: No Pertinent History Psycho-Social History: Anxiety Female Reproductive Disorders: No Pertinent History - Past Surgical History Past Surgical History: Yes Neuro Surgical History: No Pertinent History Cardiac: Angioplasty, Cardiac Stent, Cardiac Catheterization Respiratory: No Pertinent History Gastrointestinal: Hemorrhoidectomy Genitourinary: No Pertinent History Musculoskeletal: No Pertinent History Female Surgical History: No Pertinent History Other Surgical History: OVARIAN CYST REMOVED. - Social History Smoking Status: Never smoker Exposure to second hand smoke: No Drug Use: none Patient Lives Alone: Yes - Female History Hx Now: No - Nursing Vital Signs Nursing Vital Signs: Initial Vital Signs Temperature 98.0 F 10/22/18 18:59 Pulse Rate 81 10/22/18 18:59 Respiratory Rate 20 10/22/18 18:59 Blood Pressure 167/85 10/22/18 18:59 O2 Sat by Pulse Oximetry 98 10/22/18 18:59 Pain Scale Pain Intensity 2 - Physical Exam General Appearance: no apparent distress, alert Eye Exam: PERRL/EOMI, eyes nml inspection Ears, Nose, Throat Exam: normal ENT inspection, moist mucous membranes Neck Exam: normal inspection, non-tender, supple, full range of motion Respiratory Exam: normal breath sounds, lungs clear, No respiratory distress Cardiovascular Exam: regular rate/rhythm, normal heart sounds, normal peripheral pulses, No murmur Gastrointestinal/Abdomen Exam: soft, No tenderness, No mass Back Exam: normal inspection, No CVA tenderness, No vertebral tenderness Extremity Exam: normal inspection, normal range of motion Neurologic Exam: alert, oriented x 3, cooperative, product safety and standards engineer II-XII nml as tested, normal mood/affect, sensation nml, No motor deficits Skin Exam: normal color, warm, dry SpO2 Interpretation: normal (98%) SpO2: 98 Oxygen Delivery: Room Air - Course Nursing assessment & vital signs reviewed: Yes EKG Interpreted by Me: RATE (80 bpm), NORMAL AXIS, Other (EKG: Sinusarrhythmia, 80 bpmm, normal axis, no acute ST or T wave changes noted.) Ordered Tests: Active Orders 24 hr Category Date Time Status [employer] Supervisor STAT Care 10/22/18 19:20 Active EKG-ER Only STAT Care 10/22/18 19:19 Active IV Insertion STAT Care 10/22/18 19:19 Active Pulse Oximetry (ED) STAT Care 10/22/18 19:19 Active CHEST 1 VIEW (PORTABLE) Stat Exams 10/22/18 19:20 Taken AMYLASE Stat Lab 10/22/18 19:33 Completed CBC W DIFF Stat Lab 10/22/18 19:33 Completed CMP Stat Lab 10/22/18 19:33 Completed D-DIMER QUANTITATION Stat Lab 10/22/18 19:33 Completed LIPASE Stat Lab 10/22/18 19:33 Completed TROPONIN Q3H Lab 10/22/18 19:33 Completed TROPONIN Q3H Lab 10/22/18 22:30 Ordered TROPONIN Q3H Lab 10/23/18 01:30 Ordered TROPONIN Q3H Lab 10/23/18 04:30 Ordered TROPONIN Q3H Lab 10/23/18 07:30 Ordered Medication Summary Discontinued Medications Generic Name Dose Route Start Last Admin Trade Name Freq PRN Reason Stop Dose Admin Aspirin 324 mg 10/22/18 19:19 10/22/18 19:30 Baby Aspirin 81 Mg Chew PO 10/22/18 19:20 324 mg STAT ONE Administration Lab/Rad Data: Laboratory Result Diagrams 10/22/18 19:33 10/22/18 19:33 Laboratory Results 10/22/18 10/22/18 10/22/18 Range/Units 19:33 19:33 19:33 WBC (4.0-10.5) K/mm3 RBC (4.1-5.4) M/mm3 Hgb (12.0-16.0) gm/dl Hct (35-47) % MCV (78-100) fl MCH (26-32) pg MCHC (32-36) g/dl RDW (11.5-14.0) % Plt Count (150-450) K/mm3 MPV (6-9.5) fl Gran % (36.0-66.0) % Eos # (Auto) (0-0.5) Absolute Lymphs (auto) (1.0-4.6) Absolute Monos (auto) (0.0-1.3) Lymphocytes % (24.0-44.0) % Monocytes % (0.0-12.0) % Eosinophils % (0.00-5.0) % Basophils % (0.0-0.4) % Absolute Granulocytes (1.4-6.9) Basophils # (0-0.4) D-Dimer 1190 H* (215-500) ng/mL Sodium (137-145) mmol/L Potassium (3.5-5.1) mmol/L Chloride (98-107) mmol/L Carbon Dioxide (22-30) mmol/L Anion Gap (5-15) MEQ/L BUN (7-17) mg/dL Creatinine (0.52-1.04) mg/dL Estimated GFR ML/MIN Glucose (74-106) mg/dL Calcium (8.4-10.2) mg/dL Total Bilirubin (0.2-1.3) mg/dL AST (14-36) U/L ALT (0-35) U/L Alkaline Phosphatase (38-126) U/L Troponin I < 0.012 (0.000-0.034) ng/mL Serum Total Protein (6.3-8.2) g/dL Albumin (3.5-5.0) g/dL Amylase 81 (30-110) U/L Lipase 178 (23-300) U/L 10/22/18 10/22/18 Range/Units 19:33 19:33 WBC 8.3 (4.0-10.5) K/mm3 RBC 4.13 (4.1-5.4) M/mm3 Hgb 12.3 (12.0-16.0) gm/dl Hct 38.4 (35-47) % MCV 93.0 (78-100) fl MCH 29.8 (26-32) pg MCHC 32.0 (32-36) g/dl RDW 14.9 H (11.5-14.0) % Plt Count 289 (150-450) K/mm3 MPV 9.5 (6-9.5) fl Gran % 54.1 (36.0-66.0) % Eos # (Auto) 0.21 (0-0.5) Absolute Lymphs (auto) 2.55 (1.0-4.6) Absolute Monos (auto) 1.05 (0.0-1.3) Lymphocytes % 30.6 (24.0-44.0) % Monocytes % 12.6 H (0.0-12.0) % Eosinophils % 2.5 (0.00-5.0) % Basophils % 0.2 (0.0-0.4) % Absolute Granulocytes 4.51 (1.4-6.9) Basophils # 0.02 (0-0.4) D-Dimer (215-500) ng/mL Sodium 139 (137-145) mmol/L Potassium 4.1 (3.5-5.1) mmol/L Chloride 102 (98-107) mmol/L Carbon Dioxide 29 (22-30) mmol/L Anion Gap 12.8 (5-15) MEQ/L BUN 21 H (7-17) mg/dL Creatinine 1.39 H (0.52-1.04) mg/dL Estimated GFR 37.9 ML/MIN Glucose 110 H (74-106) mg/dL Calcium 9.8 (8.4-10.2) mg/dL Total Bilirubin 0.40 (0.2-1.3) mg/dL AST 21 (14-36) U/L ALT 11 (0-35) U/L Alkaline Phosphatase 81 (38-126) U/L Troponin I (0.000-0.034) ng/mL Serum Total Protein 6.4 (6.3-8.2) g/dL Albumin 3.8 (3.5-5.0) g/dL Amylase (30-110) U/L Lipase (23-300) U/L - Progress Progress: improved Air Movement: fair Progress Note: 10/22/18 21:23 I discussed the patient's case with Dr Kitchen and Dr Núñez. Will transfer patient to [place] for rule out. Patient wishes to go to to [facility] because her doctor, Dr. Ramsey is there. - Departure Time of Disposition: 21:27 Departure Disposition: Transfer Clinical Impression: Elevated d-dimer Chest pain Qualifiers: Chest pain type: unspecified Qualified Code(s): R07.9 - Chest pain, unspecified Condition: Fair Critical Care Time: No Referrals: CHARLES BERNARD [Primary Care Provider] -
[2018-10-22 19:47] LABS: BASOPHIL % 0.2 % (0.0-0.4); Basophil (Absolute #) 0.02 (0-0.4); Eosinophil % 2.5 % (0.00-5.0); Eosinophil (Absolute #) 0.21 (0-0.5); Granulocyte Absolute (ANC) 4.51 (1.4-6.9); Granulocytes % 54.1 % (36.0-66.0); Hematocrit 38.4 % (35-47); Hemoglobin 12.3 gm/dl (12.0-16.0); Lymphocyte (Absolute #) 2.55 (1.0-4.6); Lymphocytes % 30.6 % (24.0-44.0); Mean Corpuscular Hemoglobin 29.8 pg (26-32); Mean Platelet Volume 9.5 fl (6-9.5); Monocyte (Absolute #) 1.05 (0.0-1.3); Monocytes % 12.6 % (0.0-12.0); Platelet Count 289 K/mm3 (150-450); Red Blood Count 4.13 M/mm3 (4.1-5.4); Red Cell Distribution Width 14.9 % (11.5-14.0); White Blood Count 8.3 K/mm3 (4.0-10.5)
[2018-10-22 19:51] LABS: ALBUMIN 3.8 g/dL (3.5-5.0); AMYLASE 81 U/L (30-110); ANION GAP 12.8 MEQ/L (5-15); BILIRUBIN,TOTAL 0.4 mg/dL (0.2-1.3); Calcium 9.8 mg/dL (8.4-10.2); Creatinine 1 1.39 mg/dL (0.52-1.04); LIPASE 178 U/L (23-300); Potassium 4.1 mmol/L (3.5-5.1); Total Protein 6.4 g/dL (6.3-8.2)
[2018-10-22] MEDS ORDERED: ENOXAPARIN SODIUM SQ ONE ×2 (21:49→21:57)
[2018-10-22 22:09] VITALS: O2SAT 97
[2018-10-22 22:17] LABS: INR 1.01 (0.8-3.0)
[2018-10-22 22:20] LABS: PTT 26.7 SECONDS (25.3-37.0)
[2018-10-22 22:43] VITALS: BP 146/80; PULSE 75
--- NOTE | 2018-10-23 08:46 | XRAY ---
Indication: Chest pain. Comparison: October 10, 2018. Portable chest again demonstrates normal heart and lungs with a few incidental calcified granulomas. Bony thorax intact. No new/acute findings.
== END 2018-10-22 22:41 | disposition short-term general hospital (02) ==
LOC: ED 18:58
DX: R07.9 Chest pain, unspecified (principal); R79.1 Abnormal coagulation profile; I10 Essential (primary) hypertension; Z79.899 Other long term (current) drug therapy; I25.2 Old myocardial infarction
CPT/HCPCS: 36000; 36415; 71045; 80053; 82150; 83690; 84484; 85025; 85379; 85610; 85730; 93005; 93041; 96372; 99285; J1650; A9270-GY